=== PATIENT | female | born 1940 | race Two or more races ===

== ENCOUNTER 2021-09-28 06:40 | Emergency (ER) | payer OTHER ==
[~2021-09-28] VITALS: Ht 162.6 cm; Wt 86.2 kg
[2021-09-28] MEDS ORDERED: HYDROmorphone HCL 2 MG/ML VL IV ONE (07:30)
[2021-09-28] MEDS ORDERED: ONDANSETRON HCL 4 MG/2 ML VIAL IV ONE (07:30)
[2021-09-28 09:55] VITALS: BP 138/71
== END 2021-09-28 10:40 | disposition home or self-care (01) ==
LOC: EDBD 06:40 → ER 06:40
DX: S33.5XXA Sprain of ligaments of lumbar spine, initial encounter (principal); X58.XXXA Exposure to other specified factors, initial encounter; Y93.89 Activity, other specified; Y92.89 Other specified places as the place of occurrence of the external cause; Y99.8 Other external cause status
CPT/HCPCS: 72131; 96374; 96375; 99284; J1170; J2405; J7050